=== PATIENT | female | born 1960 | race African-American/Black ===

== ENCOUNTER 2018-10-04 12:07 | Observation (INO) | payer OTHER ==
--- NOTE | 2018-10-04 13:08 | PDOC ---
Rapid Medical Evaluation Medical Evaluation: Allergies Allergy/AdvReac Type Severity Reaction Status Date / Time No Known Allergies Allergy Verified 10/04/18 13:04 10/04/18 13:06 I have performed a brief in-person evaluation of this patient. The patient presents with a chief complaint of: left sided chest pain with radiation to left arm since yesterday. States pain worse with movement and is intermittent. Denies dizziness, or shortness of breath Pertinent physical exam findings: NAD even unlabored breathing chest tender I have ordered the following: ekg, labs The patient will proceed to the ED for further evaluation.
--- NOTE | 2018-10-04 14:18 | PDOC ---
History of Present Illness - General Chief Complaint: Chest Pain Stated Complaint: CHEST PAIN Time Seen by Provider: 10/04/18 14:16 History Source: Patient Exam Limitations: No Limitations - History of Present Illness Initial Comments: 10/04/18 14:16 58YOF with h/o NIDDM and obesity who p/w intermittent left sided chest pain radiating to her left arm since yesterday, worse with movement or palpation. She denies any sweats, SOB, back pain, neck pain, jaw pain, lightheadedness, vertigo, RIVERA, palpitations, abdominal pain, n/t/w focally, dysuria, or any other recent symptoms. Has not fallen or hurt herself recently. Never had this kind of pain before. Past History - Past Medical History Allergies/Adverse Reactions: Allergies Allergy/AdvReac Type Severity Reaction Status Date / Time No Known Allergies Allergy Verified 10/04/18 13:04 Home Medications: Ambulatory Orders Aspirin 81 mg PO DAILY 10/04/18 COPD: No - Suicide/Smoking/Psychosocial Hx Smoking History: Never smoked Review of Systems - Review of Systems Able to Perform ROS?: Yes Comments:: 10/04/18 15:20 GEN: no fever, chills, malaise, generalized weakness, or weight change HEENT: no ear pain, sore throat, vision change, or eye pain CV: chest pain, no palpitations, lightheadedness, syncope, or edema RESP: no cough, wheezing, or SOB GI: no abdominal pain, nausea, vomiting, diarrhea, constipation, or white/black/ bloody stool : no dysuria, hematuria, incontinence, retention, bleeding, or discharge MSK: left upper back pain, no neck/back pain, muscle weakness/pain, or joint swelling/pain NEURO: no headache, seizure, vertigo, numbness, tingling, or focal weakness PSYCH: no substance use, no behavior change SKIN: no jaundice, no rash ROS otherwise negative except as noted in HPI *Physical Exam - Vital Signs Last Vital Signs Temp Pulse Resp BP Pulse Ox 98.3 F 63 18 147/80 100 10/04/18 13:06 10/04/18 13:06 10/04/18 13:06 10/04/18 13:06 10/04/18 13:06 - Physical Exam Comments: 10/04/18 15:21 GENERAL: holding left anterior chest with hand but otherwise nontoxic and well- appearing, A/Ox4, minimal distress, answers questions appropriately HEENT: PERRLA, EOMI, moist mucous membranes NECK/BACK: no midline ttp, no spinal stepoff or deformity, no hematoma, full ROM , neck supple CHEST WALL: mild ttp left anterior chest wall at about the level of rib 3-5 from the left sternal border to the midclavicular line CARDIOVASCULAR: regular rate/rhythm, normal S1S2, no MGR, strong peripheral pulses, capillary refill <2 seconds, extremities wwp, no edema LUNGS/RESPIRATORY: no respiratory distress, CTAB GI/ABDOMEN: symmetric [id number], normoactive BS, soft, no ttp, no midline pulsatile masses : no CVA tenderness EXTREMITIES: no muscle atrophy, no acute deformity SKIN: warm and dry, no pallor, no jaundice, no rash, no bruising, no skin breakdown, no cuts, no lesions NEUROLOGICAL: GCS 15, CN II-XII grossly intact, 5/5 strength proximally and distally, no facial droop Heart Score/ECG Review - History History: Slightly suspicious - Electrocardiogram EKG: Normal - Age Age: 45-65 - Risk Factors Risk Factors Heart Score: Yes Hx Hypercholesterolemia, Yes Hx Diabetes, Yes Hx Obesity Based on the list above the patient has:: >/=3 risk factors or Hx atherosclerotic disease - Troponin Troponin: </= normal limit - Score Heart Score - Total: 3 #1 10/04/18 12:13 NSR rate 70 with normal axis and intervals, no ischemic ST-T changes Moderate Sedation - Procedure Monitoring Vital Signs: Procedure Monitoring Vital Signs Temperature 98.3 F 10/04/18 13:06 Pulse Rate 63 10/04/18 13:06 Respiratory Rate 18 10/04/18 13:06 Blood Pressure 147/80 10/04/18 13:06 O2 Sat by Pulse Oximetry (%) 100 10/04/18 13:06 ED Treatment Course - LABORATORY CBC & Chemistry Diagram: 10/04/18 14:08 10/04/18 14:08 - ADDITIONAL ORDERS Additional order review: Laboratory Results 10/04/18 14:08 Sodium 138 Potassium 2.8 L* Chloride 98 Carbon Dioxide 32 Anion Gap 9 BUN 9 Creatinine 0.8 Creat Clearance w eGFR > 60 Random Glucose 206 H Calcium 9.4 Total Bilirubin 0.3 AST 15 ALT 25 Alkaline Phosphatase 110 Creatine Kinase 260 H Creatine Kinase Index 0.9 CK-MB (CK-2) 2.4 Troponin I < 0.02 Total Protein 7.3 Albumin 3.9 10/04/18 14:08 RBC 4.47 MCV 86.0 MCHC 35.7 RDW 13.8 MPV 9.5 Neutrophils % 47.1 Lymphocytes % 37.4 Monocytes % 4.6 Eosinophils % 10.4 H Basophils % 0.5 - RADIOLOGY Radiology Studies Ordered: Category Date Time Status CHEST PA & LAT [RAD] Stat Radiology 10/04/18 15:28 Taken - Medications Given in the ED: ED Medications Discontinued Medications Generic Name Dose Route Start Last Admin Trade Name Freq PRN Reason Stop Dose Admin Acetaminophen 1,000 mg 10/04/18 15:31 10/04/18 16:50 Tylenol - PO 10/04/18 15:32 1,000 mg ONCE ONE Administration Potassium Chloride 40 meq 10/04/18 15:33 10/04/18 16:50 K-Dur - PO 10/04/18 15:34 40 meq ONCE ONE Administration Medical Decision Making - Medical Decision Making 10/04/18 15:23 Adult Pt p/w chest pain. Initial Vital Signs Temp Pulse Resp BP Pulse Ox 98.3 F 63 18 147/80 100 10/04/18 13:06 10/04/18 13:06 10/04/18 13:06 10/04/18 13:06 10/04/18 13:06 Exam: As noted in Physical Exam section. DDX IBNLT: ACS, pericarditis, tamponade, aortic dissection, AAA, PTX, PE, esophageal tear, esophagitis (e.g. pill, infectious), esophageal stricture, esophageal FB, gastritis, PUD, pancreatitis, cholecystitis, cholangitis, colitis , bowel perforation, PNA/bronchitis, pleurisy, pleuritis, MVP, pulmonary HTN, musculoskeletal, panic/anxiety, etc. W/U ordered: CBCD CMP Mg Phos Lipase Troponin CK CKMB Coags T&S Blood gas UA UCx EKG CXR. TX ordered: Tylenol at this time EKG: Reviewed; results as noted in ECG Review section. CXR: Nothing acute. Laboratory Tests 10/04/18 10/04/18 14:08 14:08 WBC 9.8 RBC 4.47 Hgb 13.7 Hct 38.5 MCV 86.0 MCH 30.7 MCHC 35.7 RDW 13.8 Plt Count 301 MPV 9.5 Absolute Neuts (auto) 4.6 Neutrophils % 47.1 Lymphocytes % 37.4 Monocytes % 4.6 Eosinophils % 10.4 H Basophils % 0.5 Nucleated RBC % 0 Sodium 138 Potassium 2.8 L* Chloride 98 Carbon Dioxide 32 Anion Gap 9 BUN 9 Creatinine 0.8 Creat Clearance w eGFR > 60 Random Glucose 206 H Calcium 9.4 Total Bilirubin 0.3 AST 15 ALT 25 Alkaline Phosphatase 110 Creatine Kinase 260 H Creatine Kinase Index 0.9 CK-MB (CK-2) 2.4 Troponin I < 0.02 Total Protein 7.3 Albumin 3.9 Reassessment: Patient states feeling improved, repeat exam benign. The patient had marked hypokalemia and elevated HEART score, appropriate for Tele Obs with cardiology consult. I have spoken with Dr. Mcdonald, admitting to tele obs, and Decision to Admit order is placed by me. I have placed cardiology consult to Dr. Abdi. *DC/Admit/Observation/Transfer Diagnosis at time of Disposition: Hypokalemia Chest pain Qualifiers: Chest pain type: unspecified Qualified Code(s): R07.9 - Chest pain, unspecified - Discharge Dispostion Condition at time of disposition: Guarded Decision to Admit order: Yes Decision to Admit order Date/Time: Decision to Admit Order Category Date Time Status Decision to Admit to Hospital Routine Admission 10/04/18 17:03 Ordered - Referrals - Patient Instructions - Post Discharge Activity
[2018-10-04 14:25] LABS: BASO % 0.5 % (0-2.0); EOS % 10.4 % (0-4.5); HEMATOCRIT 38.5 % (32.4-45.2); HEMOGLOBIN 13.7 GM/dL (10.7-15.3); LYMPH % 37.4 % (8-40); MCH 30.7 pg (25.7-33.7); MCHC 35.7 g/dl (32.0-36.0); MEAN PLT VOLUME 9.5 fl (7.5-11.1); MONO % 4.6 % (3.8-10.2); NEUT % 47.1 % (42.8-82.8); PLATELET COUNT 301 K/MM3 (134-434); RBC 4.47 M/mm3 (3.60-5.2); RDW 13.8 % (11.6-15.6); WHITE BLOOD COUNT 9.8 K/mm3 (4.0-10.0)
[2018-10-04 15:02] LABS: ALBUMIN 3.9 g/dl (3.4-5.0); ALK PHOS 110 U/L (45-117); ANION GAP 9 MMOL/L (8-16); BILIRUBIN,TOTAL 0.3 mg/dL (0.2-1); BLOOD UREA NITROGEN 9 mg/dL (7-18); CALCIUM 9.4 mg/dL (8.5-10.1); CHLORIDE 98 mmol/L (98-107); CO2 32 mmol/L (21-32); CREATININE 0.8 mg/dL (0.55-1.3); GLUCOSE,RANDOM 206 mg/dL (74-106); SGOT/AST 15 U/L (15-37); SGPT/ALT 25 U/L (13-61); SODIUM 138 mmol/L (136-145); TOT PROT 7.3 g/dl (6.4-8.2)
[2018-10-04 15:31] LABS: POTASSIUM 2.8 mmol/L (3.5-5.1)
[2018-10-04] MEDS ORDERED: ACETAMINOPHEN 500 MG TABLET (FP) PO ONE (15:31)
[2018-10-04] MEDS ORDERED: POTASSIUM CHLORIDE TABS 20 MEQ TABLET.ER (FP) PO ONE ×2 (15:33→16:25)
[2018-10-04] MEDS ORDERED: ACETAMINOPHEN INJECTION 100 ML IVPB ONE (16:25)
[2018-10-04] MEDS ORDERED: KCL 10 MEQ IVPB 10 MEQ/100 ML INFUS.BAG IVPB ONE (16:25)
--- NOTE | 2018-10-04 16:34 | PDOC ---
Attending Attestation - Resident Resident Name: Mireille Glez - ED Attending Attestation I have performed the following: I have examined & evaluated the patient, The case was reviewed & discussed with the resident, I agree w/resident's findings & plan - HPI HPI: 10/04/18 16:33 The patient is a 58 year old female with a PMH of NIDDM and obesity who presents to ER with chest pain since yesterday. Patient describes the chest pain as intermittent, localized on the left with radiation to the left arm that is exacerbated with movement. Patient denies similar symptoms in the past. Patient denies any diaphoresis, shortness of breath, neck pain, lightheadedness , dizziness, or headache. Allergies: NKA Past surgical history: None reported. Social history: No reported alcohol, drug or cigarette use. - Physicial Exam PE: 10/04/18 17:59 NAD, well appearing, PERRL, EOMI, nl conjunctiva, anicteric; neck supple. lungs clear, RRR, abdomen soft nontender. GATICA x4, no focal neuro deficits. No peripheral edema. normal color for ethnicity, WWP. - Medical Decision Making 10/04/18 16:33 See HPI for details Vital signs reviewed, wnl. Prior notes reviewed, including admissions, discharges and consultations. laboratory results and imaging reviewed, basic labs and lytes notable for hypokalemia 2.8. Cardiac panel_neg trop/panel EKG normal sinus rhythm, no interval abnormalities, narrow QRS, ST and T wave segments and morphology normal. Nonspecific T wave abnormalities ED course: potassium IV and PO repletion. tele monitor. Admit OBS for hypokalemia, symptomatic and r/o ACS, tele monitoring. Discussed results and management plan with pt and family member at bedside, agree with impression and plan 10/04/18 16:34 10/04/18 17:59 10/04/18 18:00 Heart Score/ECG Review - ECG Impressions Normal ECG: Yes Comment:: 10/04/18 16:33 EKG normal sinus rhythm, no interval abnormalities, narrow QRS, ST and T wave segments and morphology normal. Nonspecific T wave abnormalities
[2018-10-04] MEDS: KCL 10 MEQ IVPB 10 MEQ/100 ML INFUS.BAG IVPB SCH ×3 (16:50→19:10)
--- NOTE | 2018-10-04 17:29 | EKG ---
Test Reason : Blood Pressure : / mmHG Vent. Rate : 070 BPM Atrial Rate : 070 BPM P-R Int : 194 ms QRS Dur : 090 ms QT Int : 408 ms P-R-T Axes : 073 042 047 degrees QTc Int : 440 ms NORMAL SINUS RHYTHM NORMAL ECG NO PREVIOUS ECGS AVAILABLE Confirmed by NAYA GARCIA MD ([id number]) on 10/04/2018 5:29:26 PM Referred By: Confirmed By:NAYA GARCIA MD
[2018-10-04] MEDS ORDERED: KCL 10 MEQ IVPB 20 MEQ/200 ML INFUS.BAG IVPB ONE (17:46)
--- NOTE | 2018-10-04 18:30 | HP ---
Admitting History and Physical - Primary Care Physician PCP: Jake Mcdonald - Admission History of Present Illness: 58YOF with h/o NIDDM and obesity who p/w intermittent left sided chest pain radiating to her left arm since yesterday, worse with movement or palpation. She denies any sweats, SOB, back pain, neck pain, jaw pain, lightheadedness, vertigo, RIVERA, palpitations, abdominal pain, n/t/w focally, dysuria, or any other recent symptoms. Has not fallen or hurt herself recently. Never had this kind of pain before. - Smoking History Smoking history: Never smoked Home Medications - Allergies Allergies/Adverse Reactions: Allergies Allergy/AdvReac Type Severity Reaction Status Date / Time No Known Allergies Allergy Verified 10/04/18 13:04 - Home Medications Home Medications: Ambulatory Orders Aspirin 81 mg PO DAILY 10/04/18 Atenolol [Tenormin -] 25 mg PO DAILY tablet 10/05/18 Potassium Chloride [K-Dur -] 40 meq PO DAILY #14 tablet.er 10/05/18 metFORMIN HCL [Glucophage -] 500 mg PO DAILY@0700 tablet 10/05/18 Physical Examination Vital Signs: Vital Signs Temperature 98.3 F 10/04/18 13:06 Pulse Rate 63 10/04/18 13:06 Respiratory Rate 18 10/04/18 13:06 Blood Pressure 147/80 10/04/18 13:06 O2 Sat by Pulse Oximetry (%) 100 10/04/18 13:06 Constitutional: Yes: No Distress HENT: Yes: Atraumatic Neck: Yes: Supple Cardiovascular: Yes: Regular Rate and Rhythm Respiratory: Yes: CTA Bilaterally Gastrointestinal: Yes: Normal Bowel Sounds Extremities: Yes: WNL Neurological: Yes: Alert, Oriented Labs: CBC, BMP 10/04/18 14:08 10/04/18 14:08 Problem List - Problems (1) Chest pain Assessment/Plan: seems atypical , musculoskeletal will fu cardiac enzymes cardiology consult Code(s): R07.9 - CHEST PAIN, UNSPECIFIED Qualifiers: Chest pain type: unspecified Qualified Code(s): R07.9 - Chest pain, unspecified (2) Hypokalemia Assessment/Plan: will give her po K Code(s): E87.6 - HYPOKALEMIA (3) HTN (hypertension) Assessment/Plan: on tenormin Code(s): I10 - ESSENTIAL (PRIMARY) HYPERTENSION (4) Diabetes Assessment/Plan: continue metformin Code(s): E11.9 - TYPE 2 DIABETES MELLITUS WITHOUT COMPLICATIONS Assessment/Plan Laboratory Tests 10/04/18 10/04/18 14:08 14:08 WBC 9.8 RBC 4.47 Hgb 13.7 Hct 38.5 MCV 86.0 MCH 30.7 MCHC 35.7 RDW 13.8 Plt Count 301 MPV 9.5 Absolute Neuts (auto) 4.6 Neutrophils % 47.1 Lymphocytes % 37.4 Monocytes % 4.6 Eosinophils % 10.4 H Basophils % 0.5 Nucleated RBC % 0 Sodium 138 Potassium 2.8 L* Chloride 98 Carbon Dioxide 32 Anion Gap 9 BUN 9 Creatinine 0.8 Creat Clearance w eGFR > 60 Random Glucose 206 H Calcium 9.4 Total Bilirubin 0.3 AST 15 ALT 25 Alkaline Phosphatase 110 Creatine Kinase 260 H Creatine Kinase Index 0.9 CK-MB (CK-2) 2.4 Troponin I < 0.02 Total Protein 7.3 Albumin 3.9 Active Medications Generic Name Dose Route Start Last Admin Trade Name Freq PRN Reason Stop Dose Admin Potassium Chloride 10 meq in 100 mls @ 100 mls/hr 10/04/18 15:45 10/04/18 18: 29 Potassium Chloride 10 Meq Premix Ivpb - IVPB 10/04/18 18:44 100 mls/hr Q60M YANE Administration Active Medications Generic Name Dose Route Start Last Admin Trade Name Freq PRN Reason Stop Dose Admin Aspirin 81 mg 10/05/18 10:00 10/05/18 09:11 Asa - PO 81 mg DAILY YANE Administration Atenolol 25 mg 10/05/18 10:30 10/05/18 10:43 Tenormin - PO 25 mg DAILY YANE Administration Metformin HCl 500 mg 10/05/18 07:00 10/05/18 06:09 Glucophage - PO 500 mg DAILY@0700 YANE Administration Potassium Chloride 40 meq 10/05/18 10:00 10/05/18 09:11 K-Dur - PO 40 meq DAILY YANE Administration
[2018-10-04] MEDS ORDERED: SODIUM CHLORIDE 0.9% 500 ML INFUS.BAG IV ONE (19:30)
[2018-10-04 23:11] VITALS: BMI 35.3
[2018-10-05] MEDS ORDERED: metFORMIN HCL 500 MG TABLET (FP) PO SCH (07:00)
--- NOTE | 2018-10-05 09:28 | CON.CARD ---
Consult Consult Specialty:: Cardiology Referred by:: Medicine Reason for Consultation:: chest pain - History of Present Illness Chief Complaint: chest pain History of Present Illness: 58F h/o DM, obesity p/w chest pain. intermittent, L sided, radiating to L arm, worse with movement. night before pain started she was lifting heavy boxes from a high shelf in the closet and putting them down. pain started this weekend and was constant, worse with lifting left arm and turning. no diaphoresis, dyspnea, edema, palps. In the ER K 2.8, trop neg x 2. - Past Medical History ...: No - Alcohol/Substance Use Hx Alcohol Use: No - Smoking History Smoking history: Never smoked Home Medications - Allergies Allergies/Adverse Reactions: Allergies Allergy/AdvReac Type Severity Reaction Status Date / Time No Known Allergies Allergy Verified 10/04/18 13:04 - Home Medications Home Medications: Ambulatory Orders Aspirin 81 mg PO DAILY 10/04/18 Review of Systems - Review of Systems Constitutional: reports: No Symptoms Eyes: reports: No Symptoms HENT: reports: No Symptoms Neck: reports: No Symptoms Cardiovascular: reports: No Symptoms Respiratory: reports: No Symptoms Gastrointestinal: reports: No Symptoms Genitourinary: reports: No Symptoms Musculoskeletal: reports: No Symptoms Integumentary: reports: No Symptoms Neurological: reports: No Symptoms Endocrine: reports: No Symptoms Hematology/Lymphatic: reports: No Symptoms Psychiatric: reports: No Symptoms Vital Signs: Vital Signs Temperature 98.5 F 10/05/18 09:09 Pulse Rate 68 10/05/18 09:09 Respiratory Rate 18 10/05/18 09:09 Blood Pressure 153/73 10/05/18 09:09 O2 Sat by Pulse Oximetry (%) 96 10/05/18 01:03 Constitutional: Yes: Well Nourished, No Distress, Calm Eyes: Yes: Conjunctiva Clear, EOM Intact HENT: Yes: Atraumatic, Normocephalic Neck: Yes: Supple, Trachea Midline Respiratory: Yes: Regular, CTA Bilaterally Gastrointestinal: Yes: Normal Bowel Sounds, Soft Cardiovascular: Yes: Regular Rate and Rhythm JVD: No Carotid Bruit: No PMI: Non-Displaced Heart Sounds: Yes: S1, S2 Murmur: No: Systolic Murmur Musculoskeletal: No: Back Pain Extremities: No: Cold Edema: No Peripheral Pulses WNL: Yes Peripheral Pulses: 2+ Left Doralis Pedis, 2+ Right Dorsalis Pedis Integumentary: No: Jaundice Neurological: Yes: Alert, Oriented Psychiatric: No: Agitated - Other Data Labs, Other Data: CBC, BMP 10/04/18 14:08 10/04/18 14:08 Troponin, BNP 10/04/18 10/04/18 14:08 19:29 Troponin I < 0.02 < 0.02 Troponin, BNP 10/04/18 10/04/18 14:08 19:29 Troponin I < 0.02 < 0.02 Assessment/Plan EKG: sinus, nl intervals, no ischemic changes CXR: no acute process chest pain - trop neg x 2 - EKG no ischemic changes - history most consistent with musculoskeletal chest pain, resolved, no further workup - advised to follow up as outpatient given risk factors HTN - cont home atenolol hypokalemia - repeat labs ordered - aggressive repletion of K per primary DM - manage per primary
[2018-10-05] MEDS ORDERED: POTASSIUM CHLORIDE TABS 20 MEQ TABLET.ER (FP) PO SCH (10:00)
[2018-10-05] MEDS ORDERED: ASPIRIN 81 MG CHEWABLE TABLETS PO SCH (10:00)
[2018-10-05] MEDS ORDERED: ATENOLOL 25 MG TABLET (FP) PO SCH (10:30)
[2018-10-05 11:35] LABS: ALBUMIN 3.4 g/dl (3.4-5.0); ALK PHOS 104 U/L (45-117); ANION GAP 10 MMOL/L (8-16); BILIRUBIN,TOTAL 0.2 mg/dL (0.2-1); BLOOD UREA NITROGEN 11 mg/dL (7-18); CALCIUM 9.1 mg/dL (8.5-10.1); CHLORIDE 101 mmol/L (98-107); CO2 26 mmol/L (21-32); CREATININE 0.8 mg/dL (0.55-1.3); POTASSIUM 3.5 mmol/L (3.5-5.1); SGOT/AST 14 U/L (15-37); SGPT/ALT 23 U/L (13-61); SODIUM 137 mmol/L (136-145); TOT PROT 6.6 g/dl (6.4-8.2)
[2018-10-05 11:40] LABS: GLUCOSE,RANDOM 384 mg/dL (74-106)
[2018-10-05 14:04] VITALS: BP 136/50; PULSE 75; TEMP 98.1
--- NOTE | 2018-10-05 15:46 | DS ---
Physical Examination Vital Signs: Vital Signs Temperature 98.1 F 10/05/18 14:03 Pulse Rate 75 10/05/18 14:03 Respiratory Rate 12 10/05/18 14:03 Blood Pressure 136/50 L 10/05/18 14:03 O2 Sat by Pulse Oximetry (%) 96 10/05/18 10:00 Constitutional: Yes: No Distress HENT: Yes: Atraumatic Neck: Yes: Supple Cardiovascular: Yes: Regular Rate and Rhythm Respiratory: Yes: CTA Bilaterally Gastrointestinal: Yes: Normal Bowel Sounds Extremities: Yes: WNL Neurological: Yes: Alert, Oriented Labs: CBC, BMP 10/04/18 14:08 10/05/18 10:37 Discharge Summary Reason For Visit: CHEST PAIN,HYPOKALEMIA Current Active Problems Chest pain (Acute) Diabetes (Acute) HTN (hypertension) (Acute) Hypokalemia (Acute) Condition: Guarded - Instructions Disposition: HOME - Home Medications Comprehensive Discharge Medication List: Ambulatory Orders Aspirin 81 mg PO DAILY 10/04/18 Atenolol [Tenormin -] 25 mg PO DAILY tablet 10/05/18 Potassium Chloride [K-Dur -] 40 meq PO DAILY #14 tablet.er 10/05/18 metFORMIN HCL [Glucophage -] 500 mg PO DAILY@0700 tablet 10/05/18 ia home
== END 2018-10-05 17:58 | disposition home or self-care (01) ==
LOC: JER 12:07 → JERBED 17:03 → J4S 21:37
PROVIDERS: ADMIT Internal Medicine; ATTEND Internal Medicine
PROC: 3E0337Z Introduction of Electrolytic and Water Balance Substance into Peripheral Vein, Percutaneous Approach (ICD-10-PCS; principal; 2018-10-04)
PROC: 3E033GC Introduction of Other Therapeutic Substance into Peripheral Vein, Percutaneous Approach (ICD-10-PCS; 2018-10-04)
DX: E87.6 Hypokalemia (principal); R07.9 Chest pain, unspecified; I10 Essential (primary) hypertension; E11.9 Type 2 diabetes mellitus without complications; E66.9 Obesity, unspecified; Z68.35 Body mass index [BMI] 35.0-35.9, adult; Z79.84 Long term (current) use of oral hypoglycemic drugs
CPT/HCPCS: 36415; 71046-TC-FY; 80053; 82550; 82553; 82962; 84484; 85025; 93005; 93010; 96374; 99283-25; G0378